=== PATIENT | female | born 1940 | race Caucasian/White ===

== ENCOUNTER 2017-07-04 16:53 | Inpatient (IN) | payer MEDICARE, MEDICAID ==
[~2017-07-04] VITALS: Ht 132.1 cm; Wt 50.0 kg
[~2017-07-04 16:53] MED LIST: AMIO200T57 PO; DIGO125T PO; EST1T PO; IRON18TA PO; LEVO75TA PO; MULT-1085 PO; NITR0.4T51 SL; PARO40TA81 PO; TRAZ300T2 PO
[2017-07-04] MEDS ORDERED: ondansetron/PF 4mg/2ml inj IV ONE (18:20)
[2017-07-04] MEDS ORDERED: morphine 5 MG/ML injection IV ONE (18:20)
[2017-07-04] MEDS ORDERED: normal saline 1000ml 1,000 ML IV ONE ×2 (18:25→19:25)
[2017-07-04 18:29] LABS: BASOPHILS % (AUTO) 0.2 % (0-1); EOSINOPHILS # (AUTO) 0.1 X10'3 (0-0.9); EOSINOPHILS % (AUTO) 1.2 % (0-6); HEMATOCRIT 42.3 % (35.0-45.0); HEMOGLOBIN 14.3 g/dl (12.0-16.0); LYMPHOCYTES # (AUTO) 1.3 X10'3 (1.1-4.8); LYMPHOCYTES % (AUTO) 17.3 % (21-51); MEAN CORPUSCULAR HEMOGLOBIN 31.8 PG (27.0-31.0); MEAN CORPUSCULAR HGB CONC 33.7 % (33.0-36.5); MEAN CORPUSCULAR VOLUME 94.5 FL (78-98); MEAN PLATELET VOLUME 7.2 FL (7.4-10.4); MONOCYTES # (AUTO) 0.2 X10'3 (0-0.9); MONOCYTES % (AUTO) 2.8 % (2-12); NEUTROPHILS # (AUTO) 5.8 X10'3 (1.8-7.7); NEUTROPHILS % (AUTO) 78.5 % (42-75); PLATELET COUNT 219 X10'3 (140-440); RED BLOOD COUNT 4.47 X10'6 (4.20-5.60); RED CELL DISTRIBUTION WIDTH 12.9 % (11.5-14.5); WHITE BLOOD COUNT 7.4 X10'3 (4.5-11.0)
[2017-07-04 18:36] LABS: ALANINE AMINOTRANSFERASE 31 U/L (12-78); ALBUMIN 4.3 G/DL (3.4-5.0); ALBUMIN/GLOBULIN RATIO 1.4 (1.1-1.5); ALKALINE PHOSPHATASE 79 IU/L (46-116); ANION GAP 5 (8-16); ASPARTATE AMINO TRANSFERASE 30 U/L (10-37); BILIRUBIN,TOTAL 0.5 MG/DL (0.1-1.0); BLOOD UREA NITROGEN 11 MG/DL (7-18); BUN/CREATININE RATIO 8.5 (6.6-38.0); CALCIUM 10.3 MG/DL (8.5-10.1); CHLORIDE 91 MMOL/L (99-107); CREATININE 1.29 MG/DL (0.40-0.90); GLUCOSE 143 MG/DL (70-104); POTASSIUM 3.4 MMOL/L (3.5-5.1); SODIUM 135 MMOL/L (135-145); TOTAL CARBON DIOXIDE 39.3 MMOL/L (24-32); TOTAL PROTEIN 7.4 G/DL (6.4-8.2); eGFR 40 ML/MIN
[2017-07-04] MEDS ORDERED: AMIODARONE HCL 200 MG TABLET (19:23)
[2017-07-04] MEDS ORDERED: FLOVENT 110 MCG (19:23)
[2017-07-04] MEDS ORDERED: LEVOTHYROXINE 75 MCG TABLET (19:23)
[2017-07-04] MEDS ORDERED: OMEPRAZOLE DR 20 MG CAPSULE PO (19:23)
[2017-07-04] MEDS ORDERED: DIGOXIN 125 MCG (19:23)
[2017-07-04] MEDS ORDERED: TRAZODONE 150 MG TABLET (19:23)
[2017-07-04] MEDS ORDERED: ASPI-107 PO (19:25)
[2017-07-04] MEDS ORDERED: IMO2C PO (19:25)
[2017-07-04 20:39] LABS: CLARITY,URINE SLIGHTLY CLOUDY (Clear); COLOR,URINE YELLOW (Yellow); GLUCOSE, URINE NEGATIVE (Neg); KETONES,URINE NEGATIVE (Neg); LEUKOCYTE ESTERASE ,URINE SMALL (Neg); NITRITES, URINE NEGATIVE (Neg); OCCULT BLOOD,URINE NEGATIVE (Neg); PH,URINE >=9.0 (4.8-8.0); PROTEIN,URINE TRACE mg/dl (Neg); UROBILINOGEN,URINE 0.2 E.U/dL (0.2-1.0)
[2017-07-04 20:42] LABS: UA COLLECTION TYPE OTHER
[2017-07-04 20:46] LABS: RBC,URINE 0-2 /HPF (0-2); WBC,URINE 30-50 /HPF (0-4)
[2017-07-04 20:47] LABS: AMORPHOUS PHOSPHATES 2+; BACTERIA,URINE FEW /HPF (Neg); SQUAMOUS EPITHELIAL CELL,UR FEW /LPF (FEW)
[2017-07-04] MEDS ORDERED: mag hydrox/Alum hydrox/simeth 30ml oral suspension PO PRN (21:15)
[2017-07-04] MEDS ORDERED: magnesium hydroxide 30ml (MOM) UD suspension PO PRN (21:15)
[2017-07-04] MEDS ORDERED: acetaminophen 650mg rectal suppository RC PRN (21:15)
[2017-07-04] MEDS ORDERED: mineral oil 133ml enema RC PRN (21:30)
[2017-07-04] MEDS: normal saline 1000ml 1,000 ML IV SCH (21:32)
[2017-07-04] MEDS ORDERED: potassium Cl 40MEQ/NS 500ml 500 ML IV PRN ×2 (22:40)
[2017-07-04] MEDS ORDERED: potassium Cl 20 mEq SR tablet PO PRN ×2 (22:40)
[2017-07-05] MEDS: ondansetron/PF 4mg/2ml inj IV PRN ×4 (00:16→19:54)
[2017-07-05] MEDS ORDERED: morphine 5 MG/ML injection IV PRN ×2 (06:33)
[2017-07-05] MEDS: normal saline 1000ml 1,000 ML IV SCH ×2 (07:13→21:03)
[2017-07-05 08:46] LABS: ALBUMIN 3.3 G/DL (3.4-5.0); ANION GAP 6 (8-16); BLOOD UREA NITROGEN 12 MG/DL (7-18); BUN/CREATININE RATIO 13.5 (6.6-38.0); CALCIUM 8.9 MG/DL (8.5-10.1); CHLORIDE 99 MMOL/L (99-107); CREATININE 0.89 MG/DL (0.40-0.90); GLUCOSE 157 MG/DL (70-104); MAGNESIUM 2.1 MG/DL (1.5-2.4); POTASSIUM 3.4 MMOL/L (3.5-5.1); SODIUM 139 MMOL/L (135-145); TOTAL CARBON DIOXIDE 34.5 MMOL/L (24-32); eGFR 62 ML/MIN
[2017-07-05 08:56] LABS: BASOPHILS % (AUTO) 0.2 % (0-1); EOSINOPHILS # (AUTO) 0.1 X10'3 (0-0.9); EOSINOPHILS % (AUTO) 1.3 % (0-6); HEMATOCRIT 38.9 % (35.0-45.0); HEMOGLOBIN 12.8 g/dl (12.0-16.0); LYMPHOCYTES # (AUTO) 1.1 X10'3 (1.1-4.8); LYMPHOCYTES % (AUTO) 14.8 % (21-51); MEAN CORPUSCULAR HEMOGLOBIN 31.4 PG (27.0-31.0); MEAN CORPUSCULAR VOLUME 95.1 FL (78-98); MEAN PLATELET VOLUME 7.4 FL (7.4-10.4); MONOCYTES # (AUTO) 0.3 X10'3 (0-0.9); MONOCYTES % (AUTO) 4.4 % (2-12); NEUTROPHILS # (AUTO) 5.7 X10'3 (1.8-7.7); NEUTROPHILS % (AUTO) 79.3 % (42-75); PLATELET COUNT 183 X10'3 (140-440); RED BLOOD COUNT 4.09 X10'6 (4.20-5.60); WHITE BLOOD COUNT 7.2 X10'3 (4.5-11.0)
[2017-07-05] MEDS: levoTHYROXINE sod inj. 100mcg/5 ml vial IV SCH (09:35)
[2017-07-05] MEDS ORDERED: LEVO75TA7 PO (15:41)
[2017-07-05] MEDS ORDERED: OXYB5TAB11 PO (15:41)
[2017-07-05] MEDS ORDERED: TRAZ150T78 PO (15:41)
[2017-07-05] MEDS ORDERED: DIGO-16 PO (15:41)
[2017-07-05] MEDS ORDERED: AMIO200T57 PO (15:44)
[2017-07-05] MEDS ORDERED: FLO110IN IH (15:44)
[2017-07-05 18:00] VITALS: BP 105/59
[2017-07-06] VITALS: BP 116/53
[2017-07-06] MEDS ORDERED: pantoprazole 40 MG vial IV ONE (00:30)
[2017-07-06] MEDS: normal saline 1000ml 1,000 ML IV SCH ×2 (04:46→13:28)
[2017-07-06 06:00] VITALS: BP 141/78
[2017-07-06 06:27] LABS: BASOPHILS % (AUTO) 0.4 % (0-1); EOSINOPHILS # (AUTO) 0.2 X10'3 (0-0.9); EOSINOPHILS % (AUTO) 6.3 % (0-6); HEMATOCRIT 32.5 % (35.0-45.0); LYMPHOCYTES # (AUTO) 1.4 X10'3 (1.1-4.8); LYMPHOCYTES % (AUTO) 36.5 % (21-51); MEAN CORPUSCULAR HEMOGLOBIN 32.2 PG (27.0-31.0); MEAN CORPUSCULAR HGB CONC 33.8 % (33.0-36.5); MEAN CORPUSCULAR VOLUME 95.3 FL (78-98); MEAN PLATELET VOLUME 7.5 FL (7.4-10.4); MONOCYTES # (AUTO) 0.3 X10'3 (0-0.9); MONOCYTES % (AUTO) 8.1 % (2-12); NEUTROPHILS # (AUTO) 1.9 X10'3 (1.8-7.7); NEUTROPHILS % (AUTO) 48.7 % (42-75); PLATELET COUNT 129 X10'3 (140-440); RED BLOOD COUNT 3.41 X10'6 (4.20-5.60); RED CELL DISTRIBUTION WIDTH 13.2 % (11.5-14.5); WHITE BLOOD COUNT 3.9 X10'3 (4.5-11.0)
[2017-07-06 06:43] LABS: ALBUMIN 2.7 G/DL (3.4-5.0); ANION GAP 3 (8-16); BLOOD UREA NITROGEN 17 MG/DL (7-18); BUN/CREATININE RATIO 19.8 (6.6-38.0); CALCIUM 8.4 MG/DL (8.5-10.1); CHLORIDE 104 MMOL/L (99-107); CREATININE 0.86 MG/DL (0.40-0.90); GLUCOSE 97 MG/DL (70-104); MAGNESIUM 1.9 MG/DL (1.5-2.4); POTASSIUM 3.4 MMOL/L (3.5-5.1); SODIUM 139 MMOL/L (135-145); TOTAL CARBON DIOXIDE 31.6 MMOL/L (24-32); eGFR 64 ML/MIN
[2017-07-06] MEDS: levoTHYROXINE sod inj. 100mcg/5 ml vial IV SCH (07:58)
[2017-07-06 11:00] VITALS: BP 135/72
[2017-07-06] MEDS: pantoprazole 40 MG vial IV SCH (11:30)
[2017-07-06] MEDS ORDERED: oxybutynin 5mg tablet PO PRN (13:05)
[2017-07-06] MEDS ORDERED: loperamide 2mg capsule PO PRN (13:05)
[2017-07-06] MEDS: CefTRIAXone 2gm/D5W 50ml ADVTG 50 ML IV SCH (13:28)
[2017-07-06 18:00] VITALS: BP 119/64
[2017-07-06] MEDS ORDERED: FLUTICASONE PROPIONATE IH SCH (20:00)
[2017-07-06] MEDS: traZODone 150mg tablet PO SCH (21:00)
[2017-07-07] VITALS: BP 149/65
[2017-07-07] MEDS: ondansetron/PF 4mg/2ml inj IV PRN ×2 (00:20→08:37)
[2017-07-07] MEDS: normal saline 1000ml 1,000 ML IV SCH ×3 (04:52→20:01)
[2017-07-07 06:27] LABS: BASOPHILS % (AUTO) 0.3 % (0-1); EOSINOPHILS # (AUTO) 0.1 X10'3 (0-0.9); EOSINOPHILS % (AUTO) 4.1 % (0-6); HEMATOCRIT 33.2 % (35.0-45.0); HEMOGLOBIN 11.1 g/dl (12.0-16.0); LYMPHOCYTES # (AUTO) 1.1 X10'3 (1.1-4.8); LYMPHOCYTES % (AUTO) 31.9 % (21-51); MEAN CORPUSCULAR HEMOGLOBIN 31.7 PG (27.0-31.0); MEAN CORPUSCULAR HGB CONC 33.5 % (33.0-36.5); MEAN CORPUSCULAR VOLUME 94.5 FL (78-98); MEAN PLATELET VOLUME 7.6 FL (7.4-10.4); MONOCYTES # (AUTO) 0.2 X10'3 (0-0.9); MONOCYTES % (AUTO) 6.5 % (2-12); NEUTROPHILS % (AUTO) 57.2 % (42-75); PLATELET COUNT 121 X10'3 (140-440); RED BLOOD COUNT 3.51 X10'6 (4.20-5.60); RED CELL DISTRIBUTION WIDTH 12.5 % (11.5-14.5); WHITE BLOOD COUNT 3.5 X10'3 (4.5-11.0)
[2017-07-07 06:55] LABS: ALBUMIN 2.6 G/DL (3.4-5.0); ANION GAP 6 (8-16); BLOOD UREA NITROGEN 14 MG/DL (7-18); BUN/CREATININE RATIO 20.3 (6.6-38.0); CALCIUM 8.1 MG/DL (8.5-10.1); CHLORIDE 105 MMOL/L (99-107); CREATININE 0.69 MG/DL (0.40-0.90); GLUCOSE 70 MG/DL (70-104); MAGNESIUM 1.5 MG/DL (1.5-2.4); POTASSIUM 4.7 MMOL/L (3.5-5.1); SODIUM 137 MMOL/L (135-145); TOTAL CARBON DIOXIDE 26.3 MMOL/L (24-32); eGFR 82 ML/MIN
[2017-07-07 07:00] VITALS: BP 133/67
[2017-07-07] MEDS: CefTRIAXone 2gm/D5W 50ml ADVTG 50 ML IV SCH (07:13)
[2017-07-07] MEDS: pantoprazole 40 MG vial IV SCH (07:14)
[2017-07-07] MEDS: amiodarone 200mg tablet PO SCH (07:15)
[2017-07-07] MEDS: digoxin 125mcg (0.125mg) tablet PO SCH (07:15)
[2017-07-07] MEDS: aspirin 81mg tablet.DR PO SCH (07:15)
[2017-07-07] MEDS: levoTHYROXINE 75mcg tablet PO SCH (07:15)
[2017-07-07] MEDS ORDERED: non-formulary drug (Aspirin (Aspirin Ec) 1 TAB) PO SCH (08:00)
[2017-07-07] MEDS ORDERED: diatr meglu/diatrizoate 30ml oral sol.-(3 dose) bottle PO ONE (08:15)
[2017-07-07] MEDS: fluticasone furoate 100MCG/puff inhaler IH SCH (14:12)
[2017-07-07 19:00] VITALS: BP 147/71
[2017-07-07] MEDS: traZODone 150mg tablet PO SCH (22:49)
[2017-07-07 23:30] VITALS: BP 170/75
[2017-07-08 03:26] LABS: BASOPHILS % (AUTO) 0.4 % (0-1); EOSINOPHILS # (AUTO) 0.1 X10'3 (0-0.9); EOSINOPHILS % (AUTO) 4.4 % (0-6); HEMATOCRIT 33.8 % (35.0-45.0); HEMOGLOBIN 11.5 g/dl (12.0-16.0); LYMPHOCYTES # (AUTO) 1.1 X10'3 (1.1-4.8); LYMPHOCYTES % (AUTO) 37.4 % (21-51); MEAN CORPUSCULAR HGB CONC 34.1 % (33.0-36.5); MEAN CORPUSCULAR VOLUME 93.9 FL (78-98); MEAN PLATELET VOLUME 7.1 FL (7.4-10.4); MONOCYTES # (AUTO) 0.2 X10'3 (0-0.9); MONOCYTES % (AUTO) 6.9 % (2-12); NEUTROPHILS # (AUTO) 1.5 X10'3 (1.8-7.7); NEUTROPHILS % (AUTO) 50.9 % (42-75); PLATELET COUNT 133 X10'3 (140-440); RED CELL DISTRIBUTION WIDTH 12.7 % (11.5-14.5)
[2017-07-08 04:18] LABS: ALBUMIN 2.9 G/DL (3.4-5.0); ANION GAP 7 (8-16); BLOOD UREA NITROGEN 9 MG/DL (7-18); BUN/CREATININE RATIO 13.6 (6.6-38.0); CALCIUM 8.1 MG/DL (8.5-10.1); CHLORIDE 105 MMOL/L (99-107); CREATININE 0.66 MG/DL (0.40-0.90); GLUCOSE 91 MG/DL (70-104); MAGNESIUM 1.5 MG/DL (1.5-2.4); POTASSIUM 3.3 MMOL/L (3.5-5.1); SODIUM 140 MMOL/L (135-145); TOTAL CARBON DIOXIDE 27.7 MMOL/L (24-32); eGFR 87 ML/MIN
[2017-07-08] MEDS: normal saline 1000ml 1,000 ML IV SCH ×3 (05:40→17:22)
[2017-07-08] MEDS: fluticasone furoate 100MCG/puff inhaler IH SCH (07:35)
[2017-07-08] MEDS: amiodarone 200mg tablet PO SCH ×2 (08:00→22:00)
[2017-07-08] MEDS: digoxin 125mcg (0.125mg) tablet PO SCH (08:00)
[2017-07-08] MEDS: pantoprazole 40 MG vial IV SCH (09:08)
[2017-07-08] MEDS: LACTOBACILLUS RHAMNOSUS GG 15 billion unit sprinkle caps PO SCH (09:08)
[2017-07-08] MEDS: levoTHYROXINE 75mcg tablet PO SCH (09:09)
[2017-07-08] MEDS: aspirin 81mg tablet.DR PO SCH (09:09)
[2017-07-08] MEDS: CefTRIAXone 2gm/D5W 50ml ADVTG 50 ML IV SCH (09:09)
[2017-07-08 09:18] VITALS: BP 139/69
[2017-07-08] MEDS: ondansetron/PF 4mg/2ml inj IV PRN ×2 (11:23→21:02)
[2017-07-08 12:40] VITALS: BP 150/63
[2017-07-08 19:00] VITALS: BP 153/88
[2017-07-08] MEDS: traZODone 150mg tablet PO SCH (21:00)
[2017-07-08 23:30] VITALS: BP 165/82
[2017-07-09] MEDS: traZODone 150mg tablet PO SCH ×3 (00:52→21:00)
[2017-07-09 02:35] VITALS: BP 141/53
[2017-07-09] MEDS: normal saline 1000ml 1,000 ML IV SCH ×2 (04:03→15:22)
[2017-07-09 06:17] LABS: BASOPHILS % (AUTO) 0.1 % (0-1); EOSINOPHILS # (AUTO) 0.1 X10'3 (0-0.9); EOSINOPHILS % (AUTO) 2.8 % (0-6); HEMATOCRIT 34.9 % (35.0-45.0); HEMOGLOBIN 11.8 g/dl (12.0-16.0); LYMPHOCYTES % (AUTO) 44.1 % (21-51); MEAN CORPUSCULAR HEMOGLOBIN 31.9 PG (27.0-31.0); MEAN CORPUSCULAR HGB CONC 33.9 % (33.0-36.5); MEAN CORPUSCULAR VOLUME 94.1 FL (78-98); MEAN PLATELET VOLUME 7.6 FL (7.4-10.4); MONOCYTES # (AUTO) 0.1 X10'3 (0-0.9); MONOCYTES % (AUTO) 5.1 % (2-12); NEUTROPHILS # (AUTO) 1.1 X10'3 (1.8-7.7); NEUTROPHILS % (AUTO) 47.9 % (42-75); PLATELET COUNT 124 X10'3 (140-440); RED BLOOD COUNT 3.71 X10'6 (4.20-5.60); RED CELL DISTRIBUTION WIDTH 12.5 % (11.5-14.5); WHITE BLOOD COUNT 2.4 X10'3 (4.5-11.0)
[2017-07-09 06:40] LABS: ALBUMIN 2.9 G/DL (3.4-5.0); ANION GAP 8 (8-16); BLOOD UREA NITROGEN 4 MG/DL (7-18); CALCIUM 8.1 MG/DL (8.5-10.1); CHLORIDE 106 MMOL/L (99-107); CREATININE 0.57 MG/DL (0.40-0.90); GLUCOSE 106 MG/DL (70-104); MAGNESIUM 1.5 MG/DL (1.5-2.4); SODIUM 145 MMOL/L (135-145); TOTAL CARBON DIOXIDE 31.4 MMOL/L (24-32); eGFR > 90 ML/MIN
[2017-07-09 06:41] LABS: POTASSIUM 2.8 MMOL/L (3.5-5.1)
[2017-07-09] MEDS ORDERED: magnesium 2GM in 50ml NS 50 ML IV PRN (06:50)
[2017-07-09] MEDS ORDERED: magnesium Cl slow-release 64mg tablet PO PRN (06:50)
[2017-07-09] MEDS ORDERED: potassium Cl 20 mEq SR tablet PO PRN (06:50)
[2017-07-09] MEDS ORDERED: magnesium 4gm in 100ml NS 100 ML IV PRN (06:50)
[2017-07-09] MEDS ORDERED: potassium Cl 40MEQ/NS 500ml 500 ML IV PRN ×2 (06:50)
[2017-07-09 07:20] LABS: EOSINOPHILS % (MANUAL) 4 % (0-6); LYMPHOCYTES % (MANUAL) 46 % (21-51); MONOCYTES % (MANUAL) 6 % (2-12); NEUTROPHILS % (MANUAL) 44 % (42-75); PLATELET ESTIMATE DECREASED; TOTAL CELLS COUNTED 100
[2017-07-09] MEDS: pantoprazole 40 MG vial IV SCH (07:21)
[2017-07-09] MEDS: LACTOBACILLUS RHAMNOSUS GG 15 billion unit sprinkle caps PO SCH (07:21)
[2017-07-09] MEDS: amiodarone 200mg tablet PO SCH (07:23)
[2017-07-09] MEDS: CefTRIAXone 2gm/D5W 50ml ADVTG 50 ML IV SCH (07:23)
[2017-07-09] MEDS: aspirin 81mg tablet.DR PO SCH (07:23)
[2017-07-09] MEDS: digoxin 125mcg (0.125mg) tablet PO SCH (07:24)
[2017-07-09] MEDS: levoTHYROXINE 75mcg tablet PO SCH (07:24)
[2017-07-09] MEDS: potassium Cl 20 mEq SR tablet PO PRN ×3 (07:25→16:26)
[2017-07-09 07:30] VITALS: BP 148/77
[2017-07-09] MEDS: fluticasone furoate 100MCG/puff inhaler IH SCH (07:43)
[2017-07-09] MEDS: K and/or MAG REPLACEMENT MC SCH (08:00)
[2017-07-09] MEDS: ATROP PO PRN ×6 (10:26→17:44)
[2017-07-09] MEDS: PHENOBARB PO PRN ×6 (10:26→17:44)
[2017-07-09] MEDS: MAG PO PRN ×6 (10:26→17:44)
[2017-07-09] MEDS: [UNRECOGNIZED DRUG - OTHER] PO PRN ×6 (10:26→17:44)
[2017-07-09] MEDS: SCOP PO PRN ×6 (10:26→17:44)
[2017-07-09] MEDS: ALUM HYDROX PO PRN ×6 (10:26→17:44)
[2017-07-09] MEDS: SIMETH PO PRN ×6 (10:26→17:44)
[2017-07-09 11:30] VITALS: BP 124/69
[2017-07-09 20:00] VITALS: BP 106/57
[2017-07-10 00:02] VITALS: BP 123/73
[2017-07-10] MEDS: SIMETH PO PRN ×6 (00:46→08:01)
[2017-07-10] MEDS: ATROP PO PRN ×6 (00:46→08:01)
[2017-07-10] MEDS: SCOP PO PRN ×6 (00:46→08:01)
[2017-07-10] MEDS: MAG PO PRN ×6 (00:46→08:01)
[2017-07-10] MEDS: [UNRECOGNIZED DRUG - OTHER] PO PRN ×6 (00:46→08:01)
[2017-07-10] MEDS: PHENOBARB PO PRN ×6 (00:46→08:01)
[2017-07-10] MEDS: ALUM HYDROX PO PRN ×6 (00:46→08:01)
[2017-07-10] MEDS: traZODone 150mg tablet PO SCH (02:06)
[2017-07-10 02:49] VITALS: BP 152/87
[2017-07-10 05:56] LABS: BASOPHILS % (AUTO) 0.4 % (0-1); EOSINOPHILS # (AUTO) 0.1 X10'3 (0-0.9); EOSINOPHILS % (AUTO) 2.3 % (0-6); HEMATOCRIT 33.1 % (35.0-45.0); HEMOGLOBIN 11.3 g/dl (12.0-16.0); LYMPHOCYTES # (AUTO) 1.1 X10'3 (1.1-4.8); LYMPHOCYTES % (AUTO) 35.9 % (21-51); MEAN CORPUSCULAR HEMOGLOBIN 32.2 PG (27.0-31.0); MEAN CORPUSCULAR HGB CONC 34.1 % (33.0-36.5); MEAN CORPUSCULAR VOLUME 94.5 FL (78-98); MEAN PLATELET VOLUME 7.5 FL (7.4-10.4); MONOCYTES # (AUTO) 0.2 X10'3 (0-0.9); MONOCYTES % (AUTO) 5.1 % (2-12); NEUTROPHILS # (AUTO) 1.7 X10'3 (1.8-7.7); NEUTROPHILS % (AUTO) 56.3 % (42-75); PLATELET COUNT 144 X10'3 (140-440); RED BLOOD COUNT 3.51 X10'6 (4.20-5.60); RED CELL DISTRIBUTION WIDTH 12.8 % (11.5-14.5)
[2017-07-10 06:09] LABS: ALBUMIN 2.6 G/DL (3.4-5.0); ANION GAP 3 (8-16); BLOOD UREA NITROGEN 4 MG/DL (7-18); BUN/CREATININE RATIO 5.6 (6.6-38.0); CALCIUM 7.8 MG/DL (8.5-10.1); CHLORIDE 110 MMOL/L (99-107); CREATININE 0.72 MG/DL (0.40-0.90); GLUCOSE 128 MG/DL (70-104); MAGNESIUM 1.6 MG/DL (1.5-2.4); POTASSIUM 4.2 MMOL/L (3.5-5.1); SODIUM 142 MMOL/L (135-145); TOTAL CARBON DIOXIDE 28.9 MMOL/L (24-32); eGFR 79 ML/MIN
[2017-07-10] MEDS: normal saline 1000ml 1,000 ML IV SCH ×2 (07:11→17:11)
[2017-07-10 07:17] VITALS: BP 140/79
[2017-07-10] MEDS: amiodarone 200mg tablet PO SCH (07:51)
[2017-07-10] MEDS: CefTRIAXone 2gm/D5W 50ml ADVTG 50 ML IV SCH (07:51)
[2017-07-10] MEDS: LACTOBACILLUS RHAMNOSUS GG 15 billion unit sprinkle caps PO SCH (07:51)
[2017-07-10] MEDS: pantoprazole 40mg Tablet.DR PO SCH (07:51)
[2017-07-10] MEDS: digoxin 125mcg (0.125mg) tablet PO SCH (07:52)
[2017-07-10] MEDS: aspirin 81mg tablet.DR PO SCH (07:53)
[2017-07-10] MEDS: levoTHYROXINE 75mcg tablet PO SCH (07:53)
[2017-07-10] MEDS: K and/or MAG REPLACEMENT MC SCH (08:00)
[2017-07-10] MEDS: fluticasone furoate 100MCG/puff inhaler IH SCH (09:06)
[2017-07-10 11:00] VITALS: BP 137/71
[2017-07-10 20:00] VITALS: BP 145/82
[2017-07-11] VITALS: BP 143/75
[2017-07-11] MEDS: traZODone 150mg tablet PO SCH (00:35)
[2017-07-11] MEDS: normal saline 1000ml 1,000 ML IV SCH ×2 (03:11→13:11)
[2017-07-11 06:00] VITALS: BP 141/67
[2017-07-11] MEDS: K and/or MAG REPLACEMENT MC SCH (08:00)
[2017-07-11] MEDS: CefTRIAXone 2gm/D5W 50ml ADVTG 50 ML IV SCH (08:00)
[2017-07-11] MEDS: fluticasone furoate 100MCG/puff inhaler IH SCH (08:52)
[2017-07-11 11:00] VITALS: BP 129/78
[2017-07-11] MEDS: LACTOBACILLUS RHAMNOSUS GG 15 billion unit sprinkle caps PO SCH (11:01)
[2017-07-11] MEDS: pantoprazole 40mg Tablet.DR PO SCH (11:01)
[2017-07-11] MEDS: amiodarone 200mg tablet PO SCH (11:02)
[2017-07-11] MEDS: aspirin 81mg tablet.DR PO SCH (11:02)
[2017-07-11] MEDS: digoxin 125mcg (0.125mg) tablet PO SCH (11:04)
[2017-07-11] MEDS: levoTHYROXINE 75mcg tablet PO SCH (11:05)
== END 2017-07-11 17:32 | disposition home or self-care (01) | DRG 389 ==
LOC: ER 16:53 → ED HOLD 21:11 → SUR 3N 07-05 18:09
PROVIDERS: ADMIT Internal Medicine; ATTEND Family Medicine
DX: K56.609 Unspecified intestinal obstruction, unspecified as to partial versus complete obstruction (principal); E87.2 Acidosis; R65.10 Systemic inflammatory response syndrome (SIRS) of non-infectious origin without acute organ dysfunction; I48.91 Unspecified atrial fibrillation; J44.9 Chronic obstructive pulmonary disease, unspecified; N39.0 Urinary tract infection, site not specified; E03.9 Hypothyroidism, unspecified; E78.00 Pure hypercholesterolemia, unspecified; E78.5 Hyperlipidemia, unspecified; E87.6 Hypokalemia; I25.10 Atherosclerotic heart disease of native coronary artery without angina pectoris; F32.9 Major depressive disorder, single episode, unspecified; F41.9 Anxiety disorder, unspecified; G89.29 Other chronic pain; H26.9 Unspecified cataract; M54.2 Cervicalgia; M54.9 Dorsalgia, unspecified; B96.4 Proteus (mirabilis) (morganii) as the cause of diseases classified elsewhere; Z90.710 Acquired absence of both cervix and uterus; Z88.1 Allergy status to other antibiotic agents; Z88.0 Allergy status to penicillin; Z88.2 Allergy status to sulfonamides; Z91.048 Other nonmedicinal substance allergy status; Z86.73 Personal history of transient ischemic attack (TIA), and cerebral infarction without residual deficits
CPT/HCPCS: 36415; 71045; 74176; 80048; 80053; 80162; 81001; 83605; 83735; 84132; 85025; 85610; 87070; 87077; 87088; 87186; 93005; 94640; 94760; 96361; 96374; 96375; 96376; 97110; 97116; 97161; 99285; A4310; A6212; A6258; C9113; J0696; J2270; J2405; J3480; J7030; Q9963

== ENCOUNTER 2017-11-18 12:42 | Inpatient (IN) | payer MEDICARE, MEDICAID ==
[~2017-11-18] VITALS: Ht 162.6 cm; Wt 50.0 kg
[~2017-11-18 12:42] MED LIST changes: +ASPI-107 PO; +DIGO-16 PO; -DIGO125T PO; -EST1T PO; +FLO110IN IH; +IMO2C PO; -IRON18TA PO; -LEVO75TA PO; +LEVO75TA7 PO; +MSC30T PO; -MULT-1085 PO; -NITR0.4T51 SL; +OMEPRAZOLE DR 20 MG CAPSULE PO; +OXYB5TAB11 PO; -PARO40TA81 PO; +TRAZ150T78 PO; -TRAZ300T2 PO
[2017-11-18 13:41] LABS: BASOPHILS % (AUTO) 0.3 % (0-1); EOSINOPHILS % (AUTO) 0.5 % (0-6); HEMATOCRIT 38.4 % (35.0-45.0); LYMPHOCYTES # (AUTO) 1.8 X10'3 (1.1-4.8); LYMPHOCYTES % (AUTO) 32.3 % (21-51); MEAN CORPUSCULAR HEMOGLOBIN 32.2 PG (27.0-31.0); MEAN CORPUSCULAR HGB CONC 33.8 % (33.0-36.5); MEAN CORPUSCULAR VOLUME 95.1 FL (78-98); MEAN PLATELET VOLUME 6.5 FL (7.4-10.4); MONOCYTES # (AUTO) 0.2 X10'3 (0-0.9); MONOCYTES % (AUTO) 3.7 % (2-12); NEUTROPHILS # (AUTO) 3.5 X10'3 (1.8-7.7); NEUTROPHILS % (AUTO) 63.2 % (42-75); PLATELET COUNT 193 X10'3 (140-440); RED BLOOD COUNT 4.04 X10'6 (4.20-5.60); RED CELL DISTRIBUTION WIDTH 12.2 % (11.5-14.5); WHITE BLOOD COUNT 5.5 X10'3 (4.5-11.0)
[2017-11-18 14:01] LABS: ALANINE AMINOTRANSFERASE 17 U/L (12-78); ALBUMIN 3.9 G/DL (3.4-5.0); ALBUMIN/GLOBULIN RATIO 1.6 (1.1-1.5); ALKALINE PHOSPHATASE 58 IU/L (46-116); ANION GAP 11 (8-16); ASPARTATE AMINO TRANSFERASE 18 U/L (10-37); BLOOD UREA NITROGEN 12 MG/DL (7-18); BUN/CREATININE RATIO 17.6 (6.6-38.0); CALCIUM 8.7 MG/DL (8.5-10.1); CHLORIDE 90 MMOL/L (99-107); CREATININE 0.68 MG/DL (0.40-0.90); GLUCOSE 101 MG/DL (70-104); POTASSIUM 3.5 MMOL/L (3.5-5.1); SODIUM 126 MMOL/L (135-145); TOTAL CARBON DIOXIDE 24.6 MMOL/L (24-32); TOTAL PROTEIN 6.3 G/DL (6.4-8.2); eGFR 84 ML/MIN
[2017-11-18] MEDS ORDERED: PROM25TA14 PO (15:12)
[2017-11-18] MEDS ORDERED: PSYL0.524 PO (15:12)
[2017-11-18] MEDS ORDERED: PARO40TA4 PO (15:12)
[2017-11-18] MEDS ORDERED: CYCL-394 PO (15:12)
[2017-11-18] MEDS ORDERED: oxybutynin 5mg tablet PO PRN (16:15)
[2017-11-18] MEDS ORDERED: loperamide 2mg capsule PO PRN (16:15)
[2017-11-18] MEDS: K and/or MAG REPLACEMENT MC SCH (16:25)
[2017-11-18] MEDS ORDERED: mag hydrox/Alum hydrox/simeth 30ml oral suspension PO PRN (16:25)
[2017-11-18] MEDS ORDERED: potassium Cl 20 mEq SR tablet PO PRN (16:25)
[2017-11-18] MEDS ORDERED: ondansetron/PF 4mg/2ml inj IV PRN (16:25)
[2017-11-18] MEDS ORDERED: morphine 4 MG/ML inj SYRINge IV PRN (16:25)
[2017-11-18] MEDS ORDERED: magnesium hydroxide 30ml (MOM) UD suspension PO PRN (16:25)
[2017-11-18] MEDS ORDERED: magnesium Cl slow-release 64mg tablet PO PRN (16:25)
[2017-11-18] MEDS ORDERED: magnesium 2GM in 50ml NS 50 ML IV PRN (16:25)
[2017-11-18] MEDS ORDERED: magnesium 4gm in 100ml NS 100 ML IV PRN (16:25)
[2017-11-18] MEDS ORDERED: acetaminophen 325mg tablet PO PRN ×2 (16:25)
[2017-11-18] MEDS ORDERED: potassium Cl 40MEQ/NS 500ml 500 ML IV PRN ×2 (16:25)
[2017-11-18] MEDS: normal saline 1000ml 1,000 ML IV SCH (17:00)
[2017-11-18 17:53] LABS: CLARITY,URINE SLIGHTLY CLOUDY (Clear); COLOR,URINE YELLOW (Yellow); GLUCOSE, URINE NEGATIVE (Neg); KETONES,URINE >=80 mg/dl (Neg); LEUKOCYTE ESTERASE ,URINE NEGATIVE (Neg); NITRITES, URINE NEGATIVE (Neg); OCCULT BLOOD,URINE MODERATE (Neg); PROTEIN,URINE TRACE mg/dl (Neg); UA COLLECTION TYPE CLN CATCH MIDSTREAM; UROBILINOGEN,URINE 0.2 E.U/dL (0.2-1.0)
[2017-11-18 17:58] LABS: MUCUS STRANDS MANY /LPF (Neg); SQUAMOUS EPITHELIAL CELL,UR FEW /LPF (FEW)
[2017-11-18 18:00] LABS: HYALINE CASTS 0-3 /LPF (NEGATIVE); WAXY CASTS,URINE 0-3 /LPF (NEGATIVE)
[2017-11-18 18:01] LABS: TRANSITIONAL EPI CELLS,URINE MODERATE /HPF
[2017-11-18 18:06] LABS: AMORPHOUS URATES 2+; BACTERIA,URINE 2+ /HPF (Neg)
[2017-11-18] MEDS: HYDROcodone/acetaminophen 5mg/325mg tablet PO PRN (18:19)
[2017-11-18] MEDS: enoxaparin 40mg/0.4ml syringe SUBCUT SCH (18:20)
[2017-11-18] MEDS: BUDESONIDE 0.25 MG/2 ML AMPUL.NEB IH SCH (19:33)
[2017-11-18] MEDS: traZODone 150mg tablet PO SCH (21:22)
[2017-11-18] MEDS: cyclobenzaprine 10mg tablet PO SCH (21:22)
[2017-11-19 00:45] VITALS: BP 146/95
[2017-11-19] MEDS: normal saline 1000ml 1,000 ML IV SCH ×3 (01:03→16:21)
[2017-11-19 05:59] LABS: BASOPHILS % (AUTO) 0.4 % (0-1); EOSINOPHILS % (AUTO) 1.1 % (0-6); HEMATOCRIT 36.8 % (35.0-45.0); HEMOGLOBIN 12.4 g/dl (12.0-16.0); LYMPHOCYTES # (AUTO) 1.9 X10'3 (1.1-4.8); LYMPHOCYTES % (AUTO) 44.6 % (21-51); MEAN CORPUSCULAR HEMOGLOBIN 31.6 PG (27.0-31.0); MEAN CORPUSCULAR HGB CONC 33.8 % (33.0-36.5); MEAN CORPUSCULAR VOLUME 93.7 FL (78-98); MEAN PLATELET VOLUME 6.9 FL (7.4-10.4); MONOCYTES # (AUTO) 0.3 X10'3 (0-0.9); MONOCYTES % (AUTO) 6.7 % (2-12); NEUTROPHILS % (AUTO) 47.2 % (42-75); PLATELET COUNT 147 X10'3 (140-440); RED BLOOD COUNT 3.92 X10'6 (4.20-5.60); RED CELL DISTRIBUTION WIDTH 12.4 % (11.5-14.5); WHITE BLOOD COUNT 4.2 X10'3 (4.5-11.0)
[2017-11-19 06:31] LABS: ALANINE AMINOTRANSFERASE 17 U/L (12-78); ALBUMIN 3.5 G/DL (3.4-5.0); ALBUMIN/GLOBULIN RATIO 1.6 (1.1-1.5); ALKALINE PHOSPHATASE 52 IU/L (46-116); ANION GAP 8 (8-16); ASPARTATE AMINO TRANSFERASE 19 U/L (10-37); BILIRUBIN,TOTAL 0.7 MG/DL (0.1-1.0); BLOOD UREA NITROGEN 11 MG/DL (7-18); CALCIUM 8.6 MG/DL (8.5-10.1); CHLORIDE 99 MMOL/L (99-107); CREATININE 0.61 MG/DL (0.40-0.90); GLUCOSE 105 MG/DL (70-104); MAGNESIUM 1.6 MG/DL (1.5-2.4); PHOSPHORUS 3.7 MG/DL (2.3-4.5); POTASSIUM 3.4 MMOL/L (3.5-5.1); SODIUM 133 MMOL/L (135-145); TOTAL CARBON DIOXIDE 25.8 MMOL/L (24-32); TOTAL PROTEIN 5.7 G/DL (6.4-8.2); eGFR > 90 ML/MIN
[2017-11-19] MEDS: K and/or MAG REPLACEMENT MC SCH (08:00)
[2017-11-19] MEDS: BUDESONIDE 0.25 MG/2 ML AMPUL.NEB IH SCH ×3 (08:00→20:05)
[2017-11-19] MEDS ORDERED: levoTHYROXINE 75mcg tablet PO SCH (08:00)
[2017-11-19] MEDS ORDERED: pantoprazole 40mg Tablet.DR PO SCH ×2 (08:00→11:06)
[2017-11-19 08:29] VITALS: BP 160/66
[2017-11-19] MEDS: potassium Cl 20 mEq SR tablet PO PRN ×2 (08:31→16:08)
[2017-11-19] MEDS: aspirin 81mg tablet.DR PO SCH (08:32)
[2017-11-19] MEDS: digoxin 125mcg (0.125mg) tablet PO SCH (08:34)
[2017-11-19] MEDS: cyclobenzaprine 10mg tablet PO SCH ×2 (08:34→20:00)
[2017-11-19] MEDS: PARoxetine 20mg tablet PO SCH (08:35)
[2017-11-19] MEDS: amiodarone 200mg tablet PO SCH (08:35)
[2017-11-19] MEDS: enoxaparin 40mg/0.4ml syringe SUBCUT SCH (08:37)
[2017-11-19 12:02] VITALS: BP 120/59
[2017-11-19] MEDS: HYDROcodone/acetaminophen 5mg/325mg tablet PO PRN (12:22)
[2017-11-19] MEDS ORDERED: levoTHYROXINE 25mcg tablet PO SCH (12:25)
[2017-11-19 20:00] VITALS: BP 147/51
[2017-11-19] MEDS: traZODone 150mg tablet PO SCH (20:00)
[2017-11-20] VITALS: BP 136/62
[2017-11-20] MEDS: normal saline 1000ml 1,000 ML IV SCH ×3 (04:15→12:59)
[2017-11-20 05:32] LABS: BASOPHILS % (AUTO) 0.4 % (0-1); EOSINOPHILS # (AUTO) 0.1 X10'3 (0-0.9); HEMATOCRIT 32.2 % (35.0-45.0); HEMOGLOBIN 11.2 g/dl (12.0-16.0); LYMPHOCYTES # (AUTO) 1.3 X10'3 (1.1-4.8); LYMPHOCYTES % (AUTO) 49.5 % (21-51); MEAN CORPUSCULAR HEMOGLOBIN 32.5 PG (27.0-31.0); MEAN CORPUSCULAR HGB CONC 34.8 % (33.0-36.5); MEAN CORPUSCULAR VOLUME 93.3 FL (78-98); MEAN PLATELET VOLUME 6.9 FL (7.4-10.4); MONOCYTES # (AUTO) 0.2 X10'3 (0-0.9); MONOCYTES % (AUTO) 6.4 % (2-12); NEUTROPHILS % (AUTO) 39.7 % (42-75); PLATELET COUNT 128 X10'3 (140-440); RED BLOOD COUNT 3.45 X10'6 (4.20-5.60); RED CELL DISTRIBUTION WIDTH 12.6 % (11.5-14.5); WHITE BLOOD COUNT 2.5 X10'3 (4.5-11.0)
[2017-11-20 05:49] LABS: ALANINE AMINOTRANSFERASE 17 U/L (12-78); ALBUMIN 2.9 G/DL (3.4-5.0); ALBUMIN/GLOBULIN RATIO 1.4 (1.1-1.5); ALKALINE PHOSPHATASE 42 IU/L (46-116); ANION GAP 6 (8-16); ASPARTATE AMINO TRANSFERASE 17 U/L (10-37); BILIRUBIN,TOTAL 0.3 MG/DL (0.1-1.0); BLOOD UREA NITROGEN 9 MG/DL (7-18); CALCIUM 8.1 MG/DL (8.5-10.1); CHLORIDE 110 MMOL/L (99-107); CREATININE 0.69 MG/DL (0.40-0.90); GLUCOSE 89 MG/DL (70-104); MAGNESIUM 1.7 MG/DL (1.5-2.4); PHOSPHORUS 2.6 MG/DL (2.3-4.5); POTASSIUM 3.9 MMOL/L (3.5-5.1); SODIUM 143 MMOL/L (135-145); TOTAL CARBON DIOXIDE 27.5 MMOL/L (24-32); eGFR 82 ML/MIN
[2017-11-20 06:41] LABS: LYMPHOCYTES % (MANUAL) 52 % (21-51); MONOCYTES % (MANUAL) 6 % (2-12); NEUTROPHILS % (MANUAL) 41 % (42-75); TOTAL CELLS COUNTED 100
[2017-11-20 06:42] LABS: PLATELET ESTIMATE DECREASED; SMUDGE CELLS 2+
[2017-11-20] MEDS ORDERED: levoTHYROXINE 100mcg tablet PO SCH (07:00)
[2017-11-20] MEDS: K and/or MAG REPLACEMENT MC SCH (08:00)
[2017-11-20] MEDS: BUDESONIDE 0.25 MG/2 ML AMPUL.NEB IH SCH (08:25)
[2017-11-20] MEDS: enoxaparin 40mg/0.4ml syringe SUBCUT SCH (08:27)
[2017-11-20] MEDS: aspirin 81mg tablet.DR PO SCH (08:27)
[2017-11-20] MEDS: cyclobenzaprine 10mg tablet PO SCH (08:28)
[2017-11-20] MEDS: digoxin 125mcg (0.125mg) tablet PO SCH (08:28)
[2017-11-20] MEDS: PARoxetine 20mg tablet PO SCH (08:29)
[2017-11-20] MEDS: amiodarone 200mg tablet PO SCH (08:29)
[2017-11-20] MEDS: nitrofuran/nitrofuran macrocrysal 100 MG capsule PO SCH ×2 (08:36→17:34)
[2017-11-20 09:03] VITALS: BP 158/64
[2017-11-20 11:26] VITALS: BP 159/64
[2017-11-20] MEDS: HYDROcodone/acetaminophen 5mg/325mg tablet PO PRN (11:33)
[2017-11-20] MEDS ORDERED: LEVO100T9 PO (12:23)
[2017-11-20] MEDS ORDERED: NITR100C11 PO (12:23)
[2017-11-20] MEDS ORDERED: TRAZ150T78 PO (12:23)
== END 2017-11-20 18:53 | disposition home health service (06) | DRG 641 ==
LOC: ER 12:42 → ED HOLD 16:21 → SUR 3N 11-19 00:48
PROVIDERS: ADMIT Family Medicine; ATTEND Family Medicine
DX: E87.1 Hypo-osmolality and hyponatremia (principal); I48.91 Unspecified atrial fibrillation; E86.0 Dehydration; E03.9 Hypothyroidism, unspecified; J43.9 Emphysema, unspecified; E78.00 Pure hypercholesterolemia, unspecified; E78.5 Hyperlipidemia, unspecified; N39.0 Urinary tract infection, site not specified; Z68.1 Body mass index [BMI] 19.9 or less, adult; E87.6 Hypokalemia; G89.29 Other chronic pain; M54.9 Dorsalgia, unspecified; Z60.2 Problems related to living alone; I25.10 Atherosclerotic heart disease of native coronary artery without angina pectoris; F32.9 Major depressive disorder, single episode, unspecified; F41.9 Anxiety disorder, unspecified; R31.9 Hematuria, unspecified; G47.00 Insomnia, unspecified; Z80.0 Family history of malignant neoplasm of digestive organs; Z79.899 Other long term (current) drug therapy; Z86.73 Personal history of transient ischemic attack (TIA), and cerebral infarction without residual deficits; Z95.1 Presence of aortocoronary bypass graft; Z90.710 Acquired absence of both cervix and uterus; Z88.0 Allergy status to penicillin; Z88.2 Allergy status to sulfonamides; Z88.1 Allergy status to other antibiotic agents
CPT/HCPCS: 36415; 80053; 80162; 81001; 83735; 84100; 84439; 84443; 85025; 87070; 87088; 94640; 94760; 97110; 97116; 97530; 99285; A4353; J1650; J2270; J7030

== ENCOUNTER 2018-05-14 17:22 | Emergency (ER) | payer MEDICARE, MEDICAID ==
[~2018-05-14] VITALS: Ht 162.6 cm; Wt 45.5 kg
[~2018-05-14 17:22] MED LIST changes: +AMIO200T40 PO; -AMIO200T57 PO; +CYCL-394 PO; +LEVO100T9 PO; -LEVO75TA7 PO; -MSC30T PO; +NITR100C11 PO; +PARO40TA4 PO; +PROM25TA14 PO; +PSYL0.524 PO
[2018-05-14 17:58] LABS: BASOPHILS % (AUTO) 0.1 % (0-1); EOSINOPHILS # (AUTO) 0.1 X10'3 (0-0.9); EOSINOPHILS % (AUTO) 0.9 % (0-6); HEMATOCRIT 39.5 % (35.0-45.0); HEMOGLOBIN 13.2 g/dl (12.0-16.0); LYMPHOCYTES # (AUTO) 2.4 X10'3 (1.1-4.8); LYMPHOCYTES % (AUTO) 33.1 % (21-51); MEAN CORPUSCULAR HEMOGLOBIN 31.5 PG (27.0-31.0); MEAN CORPUSCULAR HGB CONC 33.5 % (33.0-36.5); MEAN CORPUSCULAR VOLUME 94.1 FL (78-98); MEAN PLATELET VOLUME 6.9 FL (7.4-10.4); MONOCYTES # (AUTO) 0.4 X10'3 (0-0.9); MONOCYTES % (AUTO) 4.9 % (2-12); NEUTROPHILS # (AUTO) 4.5 X10'3 (1.8-7.7); PLATELET COUNT 237 X10'3 (140-440); RED CELL DISTRIBUTION WIDTH 12.6 % (11.5-14.5); WHITE BLOOD COUNT 7.3 X10'3 (4.5-11.0)
[2018-05-14 18:14] LABS: ALANINE AMINOTRANSFERASE 24 U/L (12-78); ALBUMIN 3.9 G/DL (3.4-5.0); ALBUMIN/GLOBULIN RATIO 1.7 (1.1-1.5); ALKALINE PHOSPHATASE 55 IU/L (46-116); ANION GAP 9 (8-16); ASPARTATE AMINO TRANSFERASE 25 U/L (10-37); BILIRUBIN,TOTAL 1.1 MG/DL (0.1-1.0); BLOOD UREA NITROGEN 22 MG/DL (7-18); BUN/CREATININE RATIO 26.2 (6.6-38.0); CALCIUM 8.6 MG/DL (8.5-10.1); CHLORIDE 86 MMOL/L (99-107); CREATININE 0.84 MG/DL (0.40-0.90); GLUCOSE 108 MG/DL (70-104); SODIUM 127 MMOL/L (135-145); TOTAL CARBON DIOXIDE 31.6 MMOL/L (24-32); TOTAL PROTEIN 6.2 G/DL (6.4-8.2); eGFR 66 ML/MIN
[2018-05-14] MEDS ORDERED: traZODone 50mg tablet PO ONE (18:55)
[2018-05-14] MEDS ORDERED: normal saline 1000ml 1,000 ML IV ONE (18:55)
[2018-05-14] MEDS ORDERED: ondansetron/PF 4mg/2ml inj IV ONE (18:55)
[2018-05-14] MEDS ORDERED: potassium 10mEq/100ml NS w/LIDOcaine (10mg/bag) IV ONE (18:55)
[2018-05-14] MEDS ORDERED: potassium Cl 20 mEq SR tablet PO ONE (18:55)
[2018-05-14] MEDS: magnesium 1gm/100ml D5W IVPB 100 ML IV SCH ×2 (19:03→20:28)
[2018-05-14] MEDS ORDERED: POTA20TA19 PO (19:50)
[2018-05-14] MEDS ORDERED: TRAZ150T78 PO (19:50)
[2018-05-14 21:50] VITALS: BP 120/58
== END 2018-05-14 22:11 | disposition home or self-care (01) ==
LOC: ER 17:22
DX: E87.6 Hypokalemia (principal); F19.939 Other psychoactive substance use, unspecified with withdrawal, unspecified; I48.91 Unspecified atrial fibrillation; I25.10 Atherosclerotic heart disease of native coronary artery without angina pectoris; E78.00 Pure hypercholesterolemia, unspecified; E03.9 Hypothyroidism, unspecified; G89.29 Other chronic pain; Z86.73 Personal history of transient ischemic attack (TIA), and cerebral infarction without residual deficits; Z95.5 Presence of coronary angioplasty implant and graft; Z95.1 Presence of aortocoronary bypass graft; Z88.0 Allergy status to penicillin; Z88.2 Allergy status to sulfonamides; Z88.1 Allergy status to other antibiotic agents; Z79.82 Long term (current) use of aspirin
CPT/HCPCS: 36415; 71046; 80053; 85025; 96365; 96366; 96368; 96375; 99285; J2405; J3480; J7030

== ENCOUNTER 2018-08-20 21:40 | Inpatient (IN) | payer MEDICARE, MEDICAID | END 2018-08-28 15:39 | LOC: ED HOLD 08-21 01:49 → SUR 3N 08-23 12:41 → ER 21:40 → SUR 3N 08-21 06:44 | DX: K85.90 Acute pancreatitis without necrosis or infection, unspecified (principal); E87.1 Hypo-osmolality and hyponatremia; I48.0 Paroxysmal atrial fibrillation; N28.9 Disorder of kidney and ureter, unspecified; F03.90 Unspecified dementia, unspecified severity, without behavioral disturbance, psychotic disturbance, mood disturbance, and anxiety; G89.29 Other chronic pain ==

== ENCOUNTER 2018-09-13 11:20 | Inpatient (IN) | payer MEDICARE, MEDICAID | END 2018-09-19 13:40 | LOC: ORTHO 4S 09-17 01:14 → ER 11:20 → ED HOLD 15:33 → ORTHO 4S 17:19 | DX: S22.069A Unspecified fracture of T7-T8 vertebra, initial encounter for closed fracture (principal); M48.54XA Collapsed vertebra, not elsewhere classified, thoracic region, initial encounter for fracture; S22.089A Unspecified fracture of T11-T12 vertebra, initial encounter for closed fracture; M48.061 Spinal stenosis, lumbar region without neurogenic claudication; M47.812 Spondylosis without myelopathy or radiculopathy, cervical region ==

== ENCOUNTER 2018-10-06 19:52 | Emergency (ER) | payer MEDICARE, MEDICAID ==
[~2018-10-06] VITALS: Ht 162.6 cm; Wt 50.0 kg
[~2018-10-06 19:52] MED LIST changes: -ASPI-107 PO; +ASPI-1265 PO; -CYCL-394 PO; -FLO110IN IH; -NITR100C11 PO; +OMEP40CA37 PO; -OMEPRAZOLE DR 20 MG CAPSULE PO; -OXYB5TAB11 PO; -PROM25TA14 PO; -PSYL0.524 PO; -TRAZ150T78 PO
[2018-10-06 21:07] LABS: CLARITY,URINE CLOUDY (Clear); COLOR,URINE YELLOW (Yellow); GLUCOSE, URINE NEGATIVE (Neg); KETONES,URINE TRACE mg/dl (Neg); LEUKOCYTE ESTERASE ,URINE SMALL (Neg); NITRITES, URINE NEGATIVE (Neg); OCCULT BLOOD,URINE SMALL (Neg); PROTEIN,URINE TRACE mg/dl (Neg); UROBILINOGEN,URINE 0.2 E.U/dL (0.2-1.0)
[2018-10-06 21:16] LABS: UA COLLECTION TYPE VOIDED
[2018-10-06 21:17] LABS: SQUAMOUS EPITHELIAL CELL,UR MODERATE /LPF (FEW)
[2018-10-06 21:18] LABS: BACTERIA,URINE 4+ /HPF (Neg); RBC,URINE 0-2 /HPF (0-2); WBC,URINE TNTC /HPF (0-4)
[2018-10-06] MEDS ORDERED: FOSFOMYCIN TROMETHAMINE 3 GM PACKET PO ONE (21:50)
[2018-10-06 22:57] VITALS: BP 126/64
== END 2018-10-06 22:58 | disposition home or self-care (01) ==
LOC: ER 19:52
DX: G89.29 Other chronic pain (principal); M54.5 Low back pain; N39.0 Urinary tract infection, site not specified; Z86.73 Personal history of transient ischemic attack (TIA), and cerebral infarction without residual deficits; I48.91 Unspecified atrial fibrillation; I25.10 Atherosclerotic heart disease of native coronary artery without angina pectoris; E78.00 Pure hypercholesterolemia, unspecified; J43.9 Emphysema, unspecified; E03.9 Hypothyroidism, unspecified; Z98.61 Coronary angioplasty status; Z88.0 Allergy status to penicillin; Z88.2 Allergy status to sulfonamides; Z88.1 Allergy status to other antibiotic agents; Z88.8 Allergy status to other drugs, medicaments and biological substances; Z79.82 Long term (current) use of aspirin; Z79.899 Other long term (current) drug therapy; Z60.2 Problems related to living alone
CPT/HCPCS: 72100; 81001; 87088; 99284

== ENCOUNTER 2018-12-02 11:21 | Emergency (ER) | payer MEDICARE, MEDICAID ==
[~2018-12-02] VITALS: Ht 162.6 cm; Wt 44.1 kg
[2018-12-02] MEDS ORDERED: pantoprazole 40 MG vial IV ONE (12:35)
[2018-12-02] MEDS ORDERED: normal saline 1000ML IV soln IVB ONE (12:35)
[2018-12-02] MEDS ORDERED: ondansetron/PF 4mg/2ml inj IV ONE (12:35)
[2018-12-02] MEDS ORDERED: ESOMEPRAZOLE 40 MG VIAL IV ONE (12:40)
[2018-12-02 13:09] LABS: BASOPHILS % (AUTO) 0.4 % (0-1); EOSINOPHILS # (AUTO) 0.1 X10'3 (0-0.9); EOSINOPHILS % (AUTO) 1.1 % (0-6); HEMOGLOBIN 12.8 g/dl (12.0-16.0); LYMPHOCYTES # (AUTO) 1.6 X10'3 (1.1-4.8); LYMPHOCYTES % (AUTO) 30.6 % (21-51); MEAN CORPUSCULAR HEMOGLOBIN 31.9 PG (27.0-31.0); MEAN CORPUSCULAR HGB CONC 34.6 g/dL (33.0-36.5); MEAN CORPUSCULAR VOLUME 92.3 FL (78-98); MEAN PLATELET VOLUME 6.9 FL (7.4-10.4); MONOCYTES # (AUTO) 0.3 X10'3 (0-0.9); MONOCYTES % (AUTO) 5.9 % (2-12); NEUTROPHILS # (AUTO) 3.2 X10'3 (1.8-7.7); PLATELET COUNT 221 X10'3 (140-440); RED BLOOD COUNT 4.01 X10'6 (4.20-5.60); RED CELL DISTRIBUTION WIDTH 12.6 % (11.5-14.5); WHITE BLOOD COUNT 5.1 X10'3 (4.5-11.0)
[2018-12-02 13:41] LABS: ALANINE AMINOTRANSFERASE 23 U/L (12-78); ALBUMIN 3.6 G/DL (3.4-5.0); ALBUMIN/GLOBULIN RATIO 1.4 (1.1-1.5); ALKALINE PHOSPHATASE 90 IU/L (46-116); ANION GAP 4 (8-16); ASPARTATE AMINO TRANSFERASE 15 U/L (10-37); BILIRUBIN,TOTAL 0.5 MG/DL (0.1-1.0); BLOOD UREA NITROGEN 10 MG/DL (7-18); BUN/CREATININE RATIO 16.1 (6.6-38.0); CALCIUM 9.3 MG/DL (8.5-10.1); CHLORIDE 93 MMOL/L (99-107); CREATININE 0.62 MG/DL (0.40-0.90); GLUCOSE 96 MG/DL (70-104); SODIUM 127 MMOL/L (135-145); TOTAL CARBON DIOXIDE 29.9 MMOL/L (24-32); TOTAL PROTEIN 6.1 G/DL (6.4-8.2); eGFR > 90 ML/MIN
[2018-12-02 13:44] LABS: LIPASE 98 U/L (73-393); TROPONIN I < 0.04 NG/ML (0.0-0.05)
[2018-12-02 13:57] LABS: CLARITY,URINE CLEAR (Clear); COLOR,URINE STRAW (Yellow); GLUCOSE, URINE NEGATIVE (Neg); KETONES,URINE NEGATIVE (Neg); LEUKOCYTE ESTERASE ,URINE NEGATIVE (Neg); NITRITES, URINE NEGATIVE (Neg); OCCULT BLOOD,URINE NEGATIVE (Neg); PROTEIN,URINE NEGATIVE (Neg); UROBILINOGEN,URINE 0.2 E.U/dL (0.2-1.0)
[2018-12-02 14:01] LABS: UA COLLECTION TYPE STRAIGHT CATH
[2018-12-02] MEDS ORDERED: ONDA8TAB6 PO (14:07)
[2018-12-02] MEDS ORDERED: PANT-47 PO (14:07)
[2018-12-02 14:35] VITALS: BP 141/77
== END 2018-12-02 14:39 | disposition home or self-care (01) ==
LOC: ER 11:22
DX: G47.00 Insomnia, unspecified (principal); R11.0 Nausea; I48.91 Unspecified atrial fibrillation; I25.10 Atherosclerotic heart disease of native coronary artery without angina pectoris; E78.00 Pure hypercholesterolemia, unspecified; N18.9 Chronic kidney disease, unspecified; E03.9 Hypothyroidism, unspecified; G89.29 Other chronic pain; Z86.73 Personal history of transient ischemic attack (TIA), and cerebral infarction without residual deficits; Z95.5 Presence of coronary angioplasty implant and graft; Z95.1 Presence of aortocoronary bypass graft; Z88.0 Allergy status to penicillin; Z88.2 Allergy status to sulfonamides; Z88.1 Allergy status to other antibiotic agents; Z79.82 Long term (current) use of aspirin; Z79.899 Other long term (current) drug therapy
CPT/HCPCS: 36415; 80053; 81003; 83690; 84484; 85025; 96374; 96375; 99283; J2405; J7030; P9612

== ENCOUNTER 2020-04-03 10:08 | Emergency (ER) | payer MEDICARE, MEDICAID ==
[~2020-04-03] VITALS: Ht 160 cm; Wt 130.0 kg
[~2020-04-03 10:08] MED LIST changes: -AMIO200T40 PO; +AMIO200T61 PO; +OMEP40CA13 PO; -OMEP40CA37 PO; +ONDA8TAB6 PO; +PANT-47 PO
[2020-04-03 11:26] LABS: CLARITY,URINE SLIGHTLY CLOUDY (Clear); COLOR,URINE YELLOW (Yellow); GLUCOSE, URINE NEGATIVE (Neg); KETONES,URINE NEGATIVE (Neg); LEUKOCYTE ESTERASE ,URINE MODERATE (Neg); NITRITES, URINE NEGATIVE (Neg); OCCULT BLOOD,URINE NEGATIVE (Neg); PH,URINE 8.5 (4.8-8.0); PROTEIN,URINE NEGATIVE (Neg); UROBILINOGEN,URINE 0.2 E.U/dL (0.2-1.0)
[2020-04-03 11:28] LABS: UA COLLECTION TYPE CLN CATCH MIDSTREAM
[2020-04-03 11:31] LABS: BACTERIA,URINE 4+ /HPF (Neg); WBC,URINE 50-100 /HPF (0-4)
[2020-04-03 11:32] LABS: MUCUS STRANDS FEW /LPF (Neg); RBC,URINE 0-2 /HPF (0-2); SQUAMOUS EPITHELIAL CELL,UR FEW /LPF (FEW)
[2020-04-03 12:03] LABS: BASOPHILS % (AUTO) 0.4 % (0-1); EOSINOPHILS # (AUTO) 0.1 X10'3 (0-0.9); EOSINOPHILS % (AUTO) 2.6 % (0-6); HEMATOCRIT 33.6 % (35.0-45.0); LYMPHOCYTES % (AUTO) 32.5 % (21-51); MEAN CORPUSCULAR HEMOGLOBIN 30.4 PG (27.0-31.0); MEAN CORPUSCULAR HGB CONC 32.9 g/dL (33.0-36.5); MEAN CORPUSCULAR VOLUME 92.5 FL (78-98); MEAN PLATELET VOLUME 7.2 FL (7.4-10.4); MONOCYTES # (AUTO) 0.4 X10'3 (0-0.9); MONOCYTES % (AUTO) 11.5 % (2-12); NEUTROPHILS # (AUTO) 1.7 X10'3 (1.8-7.7); PLATELET COUNT 180 X10'3 (140-440); RED BLOOD COUNT 3.63 X10'6 (4.20-5.60); RED CELL DISTRIBUTION WIDTH 13.6 % (11.5-14.5); WHITE BLOOD COUNT 3.2 X10'3 (4.5-11.0)
--- NOTE | 2020-04-03 12:15 | NUR ---
up to bedside commode.
[2020-04-03 12:29] LABS: ALANINE AMINOTRANSFERASE 23 U/L (12-78); ALBUMIN 3.7 G/DL (3.4-5.0); ALBUMIN/GLOBULIN RATIO 1.5 (1.1-1.5); ALKALINE PHOSPHATASE 67 IU/L (46-116); ANION GAP 3 (8-16); ASPARTATE AMINO TRANSFERASE 17 U/L (10-37); BILIRUBIN,TOTAL 0.3 MG/DL (0.1-1.0); BLOOD UREA NITROGEN 22 MG/DL (7-18); BUN/CREATININE RATIO 24.4 (6.6-38.0); CALCIUM 9.3 MG/DL (8.5-10.1); CHLORIDE 101 MMOL/L (99-107); GLUCOSE 106 MG/DL (70-104); SODIUM 135 MMOL/L (135-145); TOTAL CARBON DIOXIDE 31.3 MMOL/L (24-32); TOTAL PROTEIN 6.2 G/DL (6.4-8.2); eGFR 60 ML/MIN
--- NOTE | 2020-04-03 13:00 | NUR ---
dharmesh (pt's caregiver) called to check on pt and return call from [facility].
[2020-04-03] MEDS ORDERED: CEPH250T PO (13:22)
[2020-04-03 13:40] VITALS: BP 130/76
== END 2020-04-03 14:02 | disposition home or self-care (01) ==
LOC: ER 10:09
DX: K52.9 Noninfective gastroenteritis and colitis, unspecified (principal); N39.0 Urinary tract infection, site not specified; F03.90 Unspecified dementia, unspecified severity, without behavioral disturbance, psychotic disturbance, mood disturbance, and anxiety; I48.91 Unspecified atrial fibrillation; I25.10 Atherosclerotic heart disease of native coronary artery without angina pectoris; E78.00 Pure hypercholesterolemia, unspecified; J43.9 Emphysema, unspecified; N18.9 Chronic kidney disease, unspecified; E03.9 Hypothyroidism, unspecified; G89.29 Other chronic pain; F41.9 Anxiety disorder, unspecified; F32.9 Major depressive disorder, single episode, unspecified; Z98.61 Coronary angioplasty status; Z95.0 Presence of cardiac pacemaker; Z86.73 Personal history of transient ischemic attack (TIA), and cerebral infarction without residual deficits; Z60.2 Problems related to living alone; Z88.0 Allergy status to penicillin; Z88.2 Allergy status to sulfonamides; Z88.1 Allergy status to other antibiotic agents; Z88.8 Allergy status to other drugs, medicaments and biological substances; Z79.82 Long term (current) use of aspirin; Z79.01 Long term (current) use of anticoagulants; Z79.899 Other long term (current) drug therapy
CPT/HCPCS: 36415; 74176; 80053; 81001; 83605; 85025; 87077; 87088; 87186; 99284

== ENCOUNTER 2020-10-29 05:22 | Emergency (ER) | payer MEDICARE, MEDICAID ==
[~2020-10-29] VITALS: Ht 162.6 cm; Wt 44.5 kg
[2020-10-29 08:14] VITALS: BP 157/61
[2020-10-29 08:28] LABS: BASOPHILS % (AUTO) 0.5 % (0-1); EOSINOPHILS # (AUTO) 0.3 X10'3 (0-0.9); EOSINOPHILS % (AUTO) 6.2 % (0-6); HEMATOCRIT 31.5 % (35.0-45.0); HEMOGLOBIN 10.5 g/dl (12.0-16.0); LYMPHOCYTES # (AUTO) 1.2 X10'3 (1.1-4.8); LYMPHOCYTES % (AUTO) 28.5 % (21-51); MEAN CORPUSCULAR HEMOGLOBIN 31.1 PG (27.0-31.0); MEAN CORPUSCULAR HGB CONC 33.5 g/dL (33.0-36.5); MEAN CORPUSCULAR VOLUME 92.6 FL (78-98); MEAN PLATELET VOLUME 7.7 FL (7.4-10.4); MONOCYTES # (AUTO) 0.2 X10'3 (0-0.9); MONOCYTES % (AUTO) 4.6 % (2-12); NEUTROPHILS # (AUTO) 2.6 X10'3 (1.8-7.7); NEUTROPHILS % (AUTO) 60.2 % (42-75); PLATELET COUNT 196 X10'3 (140-440); WHITE BLOOD COUNT 4.3 X10'3 (4.5-11.0)
[2020-10-29 08:33] LABS: ALANINE AMINOTRANSFERASE 26 U/L (12-78); ALBUMIN 3.6 G/DL (3.4-5.0); ALBUMIN/GLOBULIN RATIO 1.3 (1.1-1.5); ALKALINE PHOSPHATASE 74 IU/L (46-116); ANION GAP 7 (8-16); ASPARTATE AMINO TRANSFERASE 23 U/L (10-37); BILIRUBIN,TOTAL 0.4 MG/DL (0.1-1.0); BLOOD UREA NITROGEN 12 MG/DL (7-18); CALCIUM 8.7 MG/DL (8.5-10.1); CHLORIDE 102 MMOL/L (99-107); CREATININE 0.75 MG/DL (0.40-0.90); GLUCOSE 95 MG/DL (70-104); POTASSIUM 4.2 MMOL/L (3.5-5.1); SODIUM 138 MMOL/L (135-145); TOTAL PROTEIN 6.4 G/DL (6.4-8.2); eGFR 74 ML/MIN
--- NOTE | 2020-10-29 10:32 | NUR ---
SPOKE WITH SON REGARDING PT WANDERING AND MAY NEED ASST IN THE HOME. SON AGREED AND STATES, ITS FINALLY TO HERE IT FROM A MEDICAL PROFESSIONAL.
== END 2020-10-29 10:34 | disposition home or self-care (01) ==
LOC: ER 05:23
DX: K64.4 Residual hemorrhoidal skin tags (principal); K44.9 Diaphragmatic hernia without obstruction or gangrene; K62.89 Other specified diseases of anus and rectum; I48.91 Unspecified atrial fibrillation; I25.10 Atherosclerotic heart disease of native coronary artery without angina pectoris; E78.00 Pure hypercholesterolemia, unspecified; N18.9 Chronic kidney disease, unspecified; G89.29 Other chronic pain; F41.9 Anxiety disorder, unspecified; F32.9 Major depressive disorder, single episode, unspecified; Z95.1 Presence of aortocoronary bypass graft; Z98.61 Coronary angioplasty status; Z60.2 Problems related to living alone; Z86.73 Personal history of transient ischemic attack (TIA), and cerebral infarction without residual deficits; Z88.0 Allergy status to penicillin; Z88.2 Allergy status to sulfonamides; Z88.8 Allergy status to other drugs, medicaments and biological substances; Z79.899 Other long term (current) drug therapy; Z79.82 Long term (current) use of aspirin
CPT/HCPCS: 36415; 74176; 80053; 85025; 99284

== ENCOUNTER 2021-01-09 16:42 | Emergency (ER) | payer MEDICARE, MEDICAID ==
[~2021-01-09] VITALS: Ht 162.6 cm; Wt 45.5 kg
[~2021-01-09 16:42] MED LIST changes: -OMEP40CA13 PO; +OMEP40CA21 PO
--- NOTE | 2021-01-09 18:00 | NUR ---
First ineraction with pt for triage. Report given to primary RN Russ RICHARDS
[2021-01-09 18:11] VITALS: BP 144/72
[2021-01-09] MEDS ORDERED: ondansetron/PF 4mg/2ml inj IV ONE (18:20)
[2021-01-09] MEDS ORDERED: morphine 4 MG/ML inj SYRINge IV ONE (18:20)
[2021-01-09] MEDS ORDERED: morphine 2 MG/ML inj. syringe IV ONE (19:05)
[2021-01-09 19:18] LABS: BASOPHILS % (AUTO) 0.5 % (0-1); EOSINOPHILS % (AUTO) 1.3 % (0-6); HEMATOCRIT 31.4 % (35.0-45.0); HEMOGLOBIN 10.6 g/dl (12.0-16.0); LYMPHOCYTES # (AUTO) 1.3 X10'3 (1.1-4.8); LYMPHOCYTES % (AUTO) 37.8 % (21-51); MEAN CORPUSCULAR HEMOGLOBIN 29.2 PG (27.0-31.0); MEAN CORPUSCULAR HGB CONC 33.6 g/dL (33.0-36.5); MEAN CORPUSCULAR VOLUME 86.8 FL (78-98); MEAN PLATELET VOLUME 7.4 FL (7.4-10.4); MONOCYTES # (AUTO) 0.2 X10'3 (0-0.9); MONOCYTES % (AUTO) 6.6 % (2-12); NEUTROPHILS # (AUTO) 1.8 X10'3 (1.8-7.7); NEUTROPHILS % (AUTO) 53.8 % (42-75); PLATELET COUNT 208 X10'3 (140-440); RED BLOOD COUNT 3.62 X10'6 (4.20-5.60); RED CELL DISTRIBUTION WIDTH 14.9 % (11.5-14.5); WHITE BLOOD COUNT 3.3 X10'3 (4.5-11.0)
[2021-01-09 19:35] LABS: ALANINE AMINOTRANSFERASE 23 U/L (12-78); ALBUMIN 3.5 G/DL (3.4-5.0); ALBUMIN/GLOBULIN RATIO 1.2 (1.1-1.5); ALKALINE PHOSPHATASE 72 IU/L (46-116); ANION GAP 10 (8-16); ASPARTATE AMINO TRANSFERASE 23 U/L (10-37); BILIRUBIN,TOTAL 0.6 MG/DL (0.1-1.0); BLOOD UREA NITROGEN 17 MG/DL (7-18); CALCIUM 8.7 MG/DL (8.5-10.1); CHLORIDE 96 MMOL/L (99-107); CREATININE 0.74 MG/DL (0.40-0.90); GLUCOSE 86 MG/DL (70-104); LIPASE 53 U/L (73-393); POTASSIUM 3.7 MMOL/L (3.5-5.1); SODIUM 131 MMOL/L (135-145); TOTAL CARBON DIOXIDE 24.7 MMOL/L (24-32); TOTAL PROTEIN 6.5 G/DL (6.4-8.2); eGFR 75 ML/MIN
[2021-01-09 19:40] LABS: CLARITY,URINE CLOUDY (Clear); COLOR,URINE YELLOW (Yellow); GLUCOSE, URINE NEGATIVE (Neg); KETONES,URINE NEGATIVE (Neg); LEUKOCYTE ESTERASE ,URINE LARGE (Neg); NITRITES, URINE POSITIVE (Neg); OCCULT BLOOD,URINE MODERATE (Neg); PH,URINE 7.5 (4.8-8.0); PROTEIN,URINE NEGATIVE (Neg); UROBILINOGEN,URINE 0.2 E.U/dL (0.2-1.0)
[2021-01-09 20:00] LABS: WBC,URINE 50-100 /HPF (0-4)
[2021-01-09 20:01] LABS: BACTERIA,URINE 4+ /HPF (Neg); RENAL CELLS, URINE FEW /HPF; SQUAMOUS EPITHELIAL CELL,UR MODERATE /LPF (FEW)
[2021-01-09 20:04] LABS: WBC CLUMPS,URINE FEW /HPF (NEGATIVE)
[2021-01-09 20:05] LABS: UA COLLECTION TYPE CLN CATCH MIDSTREAM
[2021-01-09] MEDS ORDERED: PHEN-824 PO (20:05)
[2021-01-09] MEDS ORDERED: CEPH250T PO (20:05)
[2021-01-09] MEDS ORDERED: cephalexin 250mg capsule PO ONE (20:25)
--- NOTE | 2021-01-12 17:29 | NUR ---
Patient called stating that she had been vomiting and nauseated since taking Keflex antibiotic. Patient stated that she was allergic to PCN and that it states she should not take keflex if allergic to PCN. I spoke with Dr. Jimenez who stated that Keflex was the most appropriate antibiotic for the patient and that she would prescribe zofran ODT 4 mg PRN N/V per Dr. Jimenez. patient agreed to try the antiemetic and continue taking keflex. Called in prescription to [facility] in [place] and left a message for pharmacist.
== END 2021-01-10 03:35 | disposition home or self-care (01) ==
LOC: ER 16:42
DX: N39.0 Urinary tract infection, site not specified (principal); R10.30 Lower abdominal pain, unspecified; F03.90 Unspecified dementia, unspecified severity, without behavioral disturbance, psychotic disturbance, mood disturbance, and anxiety; I48.91 Unspecified atrial fibrillation; I25.10 Atherosclerotic heart disease of native coronary artery without angina pectoris; E78.00 Pure hypercholesterolemia, unspecified; J43.9 Emphysema, unspecified; E03.9 Hypothyroidism, unspecified; G89.29 Other chronic pain; N18.9 Chronic kidney disease, unspecified; Z87.81 Personal history of (healed) traumatic fracture; Z95.5 Presence of coronary angioplasty implant and graft; Z88.0 Allergy status to penicillin; Z88.1 Allergy status to other antibiotic agents; Z88.2 Allergy status to sulfonamides; Z88.8 Allergy status to other drugs, medicaments and biological substances; Z91.048 Other nonmedicinal substance allergy status; Z79.82 Long term (current) use of aspirin; Z79.899 Other long term (current) drug therapy
CPT/HCPCS: 36415; 80053; 81001; 83605; 83690; 85025; 87077; 87088; 87186; 96374; 96375; 96376; 99284; J2270; J2405

== ENCOUNTER 2021-03-07 11:16 | Emergency (ER) | payer MEDICARE, MEDICAID ==
[~2021-03-07] VITALS: Ht 160 cm; Wt 45.5 kg
[~2021-03-07 11:16] MED LIST changes: +PHEN-824 PO
[2021-03-07 11:37] VITALS: BP 148/73
[2021-03-07] MEDS ORDERED: DOXY100C76 PO (11:39)
== END 2021-03-07 12:45 | disposition home or self-care (01) ==
LOC: ER 11:17
DX: L03.114 Cellulitis of left upper limb (principal); M25.532 Pain in left wrist; I48.91 Unspecified atrial fibrillation; I25.10 Atherosclerotic heart disease of native coronary artery without angina pectoris; E78.00 Pure hypercholesterolemia, unspecified; J43.9 Emphysema, unspecified; N18.9 Chronic kidney disease, unspecified; E03.9 Hypothyroidism, unspecified; G89.29 Other chronic pain; F41.9 Anxiety disorder, unspecified; F32.9 Major depressive disorder, single episode, unspecified; Z86.73 Personal history of transient ischemic attack (TIA), and cerebral infarction without residual deficits; Z98.890 Other specified postprocedural states; Z60.2 Problems related to living alone; Z88.0 Allergy status to penicillin; Z88.2 Allergy status to sulfonamides; Z88.1 Allergy status to other antibiotic agents; Z88.8 Allergy status to other drugs, medicaments and biological substances; Z79.82 Long term (current) use of aspirin; Z79.899 Other long term (current) drug therapy
CPT/HCPCS: 99283

== ENCOUNTER 2021-04-12 10:10 | Emergency (ER) | payer MEDICARE, MEDICAID ==
[~2021-04-12] VITALS: Ht 162.6 cm; Wt 50.0 kg
[2021-04-12 10:13] VITALS: BP 104/86
[2021-04-12] MEDS ORDERED: TOBR5DRO2 RIGHTEYE (10:44)
[2021-04-12] MEDS ORDERED: proparacaine 0.5% ophthalmic drops 15ml EACHEYE ONE (10:55)
== END 2021-04-12 11:04 | disposition home or self-care (01) ==
LOC: ER 10:11
DX: H10.31 Unspecified acute conjunctivitis, right eye (principal); H57.11 Ocular pain, right eye; I48.91 Unspecified atrial fibrillation; I25.10 Atherosclerotic heart disease of native coronary artery without angina pectoris; E78.00 Pure hypercholesterolemia, unspecified; J43.9 Emphysema, unspecified; N18.9 Chronic kidney disease, unspecified; E03.9 Hypothyroidism, unspecified; G89.29 Other chronic pain; F41.9 Anxiety disorder, unspecified; F32.9 Major depressive disorder, single episode, unspecified; Z86.73 Personal history of transient ischemic attack (TIA), and cerebral infarction without residual deficits; Z98.890 Other specified postprocedural states; Z60.2 Problems related to living alone; Z88.0 Allergy status to penicillin; Z88.2 Allergy status to sulfonamides; Z88.1 Allergy status to other antibiotic agents; Z88.8 Allergy status to other drugs, medicaments and biological substances; Z79.82 Long term (current) use of aspirin; Z79.899 Other long term (current) drug therapy
CPT/HCPCS: 99283

== ENCOUNTER 2021-04-14 16:06 | Emergency (ER) | payer MEDICARE, MEDICAID ==
[~2021-04-14] VITALS: Ht 162.6 cm; Wt 50.0 kg
[~2021-04-14 16:06] MED LIST changes: +TOBR5DRO2 RIGHTEYE
[2021-04-14 16:09] VITALS: BP 119/81
== END 2021-04-14 19:07 | disposition left against medical advice (07) ==
LOC: ER 16:07
DX: H57.11 Ocular pain, right eye (principal); Z53.21 Procedure and treatment not carried out due to patient leaving prior to being seen by health care provider

== ENCOUNTER 2021-06-23 14:17 | Emergency (ER) | payer MEDICARE, MEDICAID ==
[~2021-06-23] VITALS: Ht 165.1 cm; Wt 44.0 kg
[2021-06-23 14:33] VITALS: BP 110/63
== END 2021-06-23 15:42 | disposition home or self-care (01) ==
LOC: ER 14:18
DX: Z13.89 Encounter for screening for other disorder (principal); H57.12 Ocular pain, left eye; I48.91 Unspecified atrial fibrillation; I25.10 Atherosclerotic heart disease of native coronary artery without angina pectoris; E78.00 Pure hypercholesterolemia, unspecified; J43.9 Emphysema, unspecified; N18.9 Chronic kidney disease, unspecified; E03.9 Hypothyroidism, unspecified; G89.29 Other chronic pain; F41.9 Anxiety disorder, unspecified; F32.9 Major depressive disorder, single episode, unspecified; Z86.73 Personal history of transient ischemic attack (TIA), and cerebral infarction without residual deficits; Z98.890 Other specified postprocedural states; Z60.2 Problems related to living alone; Z88.8 Allergy status to other drugs, medicaments and biological substances; Z88.2 Allergy status to sulfonamides; Z88.1 Allergy status to other antibiotic agents; Z79.82 Long term (current) use of aspirin; Z79.899 Other long term (current) drug therapy
CPT/HCPCS: 99283